=== PATIENT | male | born 1970 | race Caucasian/White ===

== ENCOUNTER 2018-08-24 17:53 | Inpatient (IN) | END 2018-08-28 18:00 | disposition home health service (06) | DRG 854 ==

== ENCOUNTER 2018-12-12 14:10 | Inpatient (IN) | payer OTHER ==
[~2018-12-12] VITALS: Ht 180.3 cm; Wt 85.1 kg
[~2018-12-12 14:10] MED LIST: Insulin Glargine SC; LEVO500T48 PO; NOVO3I SC
[2018-12-12] MEDS ORDERED: VANCOMYCIN 1 GM (PMX) 250 ML IVPB STA (16:55)
[2018-12-12] MEDS ORDERED: PIPER-TAZO 3.375 GM IV (PMX) 100 ML IVPB STA (16:55)
[2018-12-12] MEDS ORDERED: SODIUM CHLORIDE 0.9% 1L BAG IV* STA (16:55)
--- NOTE | 2018-12-12 17:13 | ERD ---
ER Documentation Chief Complaint Chief Complaint L foot toes possible infection/osteomyelitis; sent by PMD HPI 48-year-old male sent in by his scorer single Dr. Van Galicia, for possible osteomyelitis seen on MRI done recently on the left foot. Patient was admitted here in August 2018 for osteomyelitis of the left foot pinky toe. He had an amputation at that time and was put on 6 weeks of IV antibiotics. He has been following up with his scorer single and his symptoms have been improving. He has not noticed any pain or redness in his toes. However recent MRI did show possible osteomyelitis of the tips of the third and fourth toe. Patient does not have the report with him. He is denying any fevers or chills. No new wounds. ROS All systems reviewed and are negative except as per history of present illness. Medications Home Meds Reported Medications Hydralazine Hcl* (Hydralazine Hcl*) 10 Mg Tablet, 10 MG PO TID PRN for NEEDED, #60 TAB 12/12/18 Insulin Glargine,Hum.rec.anlog (Basaglar Kwikpen U-100) 100 Unit/1 Ml Insuln.pen, 16 UNIT SC DAILY, EA 12/12/18 Insulin Lispro (Humalog) 100 Unit/1 Ml Cartridge, 0 SQ SLIDING SCALE, EA INJECT NEEDED (AVERAGE BTWN 3-5 UNIUTS) 12/12/18 Discontinued Scripts [Insulin Glargine] 100 UNITS/ML SOLN No Conflict Check, 16 UNITS SC DAILY@1999, #30 ML Prov:ELPIDIO FISCHER MD 08/28/18 Insulin Aspart* (Novolog Insulin Pen*) 100 Unit/Ml Soln, 2 UNIT SC WITH MEALS BEDTIME, #30 ML Prov:ELPIDIO FISCHER MD 08/28/18 Levofloxacin* (Levaquin*) 500 Mg Tablet, 500 MG PO DAILY@06, #42 TAB Prov:ELPIDIO FISCHER MD 08/28/18 Allergies Allergies: Coded Allergies: No Known Allergy (Unverified , 12/12/18) PMhx/Soc History of Surgery: Yes (left pinky toe amputation) Anesthesia Reaction: No Hx Neurological Disorder: No Hx Respiratory Disorders: No Hx Cardiac Disorders: Yes (HTN) Hx Psychiatric Problems: No Hx Miscellaneous Medical Probl: Yes (DM) Hx Alcohol Use: No Hx Substance Use: Yes (marijuana, hx of stimulant use) Hx Tobacco Use: Yes Smoking Status: Current every day smoker FmHx Family History: diabetes Physical Exam Vitals Vital Signs Date Temp Pulse Resp B/P (MAP) Pulse Ox O2 O2 Flow FiO2 Time Delivery Rate 12/12/18 97.4 85 20 125/74 96 Room Air 16:58 (91) 12/12/18 97.4 111 20 125/74 96 14:20 (91) Physical Exam Const: No acute distress Head: Atraumatic Eyes: Normal Conjunctiva ENT: Normal External Ears, Nose and Mouth. Neck: Full range of motion. No meningismus. Resp: Clear to auscultation bilaterally Cardio: Regular rate and rhythm, no murmurs Abd: Soft, non tender, non distended. Normal bowel sounds Skin: No petechiae or rashes Back: No midline or flank tenderness Ext: No cyanosis, or edema. Left foot exam: Healing surgical wound of the lateral foot at site of toe amputation. No erythema, tenderness or swelling of the other toes. No additional wounds seen. 2+ DP and PT pulses. Right foot appears normal without wounds, erythema, tenderness. 2+ DP and PT pulses. Neur: Awake and alert Psych: Normal Mood and Affect Results 24 hrs Laboratory Tests Test 12/12/18 17:17 12/12/18 17:21 White Blood Count Pending Red Blood Count Pending Hemoglobin Pending Hematocrit Pending Mean Corpuscular Volume Pending Mean Corpuscular Hemoglobin Pending Mean Corpuscular Hemoglobin Concent Pending Red Cell Distribution Width Pending Platelet Count Pending Mean Platelet Volume Pending Prothrombin Time 11.4 Sec Prothrombin Time Ratio 0.9 INR International Normalized Ratio 0.82 Activated Partial Thromboplast Time 32.6 Sec POC Venous Lactate 1.1 mmol/L Current Medications Medications Dose Sig/Siddhartha Start Time Status Last (Trade) Ordered Route PRN Stop Time Admin Dose Reason Admin Sodium 2,550 ml BOLUS OVER 2 12/12/18 DC 12/12/18 Chloride HOURS STAT 16:55 17:29 (NS) IV* 12/12/18 16:57 Vancomycin 250 ml @ ONCE STAT 12/12/18 HCl 125 mls/hr IVPB 16:55 12/12/18 18:54 Piperacillin 100 ml @ ONCE STAT 12/12/18 DC 3/13/19 Sod/ 200 mls/hr IVPB 16:55 17:29 Tazobactam 12/12/18 17:24 Sod Procedures/MDM EMERGENT LABS AND DIAGNOSTIC STUDIES: Lab Results above were reviewed and interpreted by me. CBC: no anemia or evidence of infection CMP: No evidence of electrolyte abnormality, renal failure, hypoglycemia, liver failure, or biliary obstruction Lactate within normal limits without evidence of sepsis or tissue hypoperfusion CRP: Radiology Results as interpreted by Radiology below were reviewed by Glory Terrazas MD: X-ray left foot: Initial Nursing notes reviewed. Previous Medical Records requested via the Electronic Health Record. EMERGENCY DEPARTMENT COURSE / MEDICAL DECISION MAKING: Patient presents with possible osteomyelitis of the left third and fourth toe seen on recent MRI. He is afebrile with only tachycardia on arrival which has improved. There is no evidence of severe sepsis or septic shock. On exam there is no evidence of cellulitis or any infected wounds. However given the MRI results, I feel the patient will need admission for ID consult and likely prolonged IV antibiotics. Broad-spectrum IV antibiotics were started in the ER. Spoke with Dr. Hutton, who has accepted the patient for admission to [facility]. Departure Diagnosis: Primary Impression: Foot osteomyelitis, left Osteomyelitis type: unspecified type Qualified Codes: M86.9 - Osteomyelitis, unspecified Condition: WILEY Solis MD Dec 12, 2018 17:13
[2018-12-12] MEDS ORDERED: INSU100C SQ (17:50)
[2018-12-12] MEDS ORDERED: INSU100I33 SC (17:51)
[2018-12-12] MEDS ORDERED: HYDR-3670 PO (17:52)
[2018-12-12] MEDS ORDERED: LISI-471 PO (17:52)
[2018-12-12] MEDS ORDERED: CHOL500010 PO (17:54)
[2018-12-12] MEDS ORDERED: LIRA0.6P SQ (17:55)
[2018-12-12] MEDS ORDERED: ACETAMINOPHEN 325 MG TAB PO PRN ×2 (18:00→19:30)
[2018-12-12] MEDS ORDERED: ONDANSETRON 4 MG INJ IV PRN ×2 (18:00→19:30)
[2018-12-12] MEDS ORDERED: NACL 0.9% 3 ML SYG IV SCH (19:30)
[2018-12-12] MEDS ORDERED: morphine 2 MG INJ IV PRN (19:30)
[2018-12-12] MEDS ORDERED: HYDROCODONE/APAP (5/325) TAB PO PRN (19:30)
[2018-12-12] MEDS ORDERED: ZOLPIDEM 5 MG TAB PO PRN (19:30)
[2018-12-12] MEDS ORDERED: DOCUSATE SODIUM 100 MG CAP PO PRN (19:30)
--- NOTE | 2018-12-12 19:36 | HP ---
Date/Time of Note Date/Time of Note DATE: 12/12/18 TIME: 19:34 Assessment/Plan VTE Prophylaxis SCD applied (from Nsg): Yes Pharmacological prophylaxis: NA/contraindicated Pharm contraindication: surgical contra Lines/Catheters IV Catheter Type (from Nrsg): Saline Lock Assessment/Plan Hospital Course 1. Reported osteomyelitis of the left foot in the third and fourth digits Patient had a recent MRI 2 days ago with reported OM, patient was sent by [facility] Patient is currently asymptomatic Start IV antibiotics Podiatry and ID consultations 2. Diabetes-type I Scheduled insulin and sliding scale 3. History of meth use 4. CKD Monitor Prophylaxis: SCDs Result Diagram: 12/12/18 1717 12/12/18 1717 Results 24hrs Laboratory Tests Test 12/12/18 17:17 12/12/18 17:21 White Blood Count 8.6 # Red Blood Count 4.47 #L Hemoglobin 13.8 #L Hematocrit 40.4 #L Mean Corpuscular Volume 90.4 Mean Corpuscular Hemoglobin 30.9 Mean Corpuscular Hemoglobin Concent 34.2 Red Cell Distribution Width 13.3 Platelet Count 340 Mean Platelet Volume 9.0 Immature Granulocytes % 0.400 Neutrophils % 54.6 Lymphocytes % 29.3 Monocytes % 5.0 Eosinophils % 10.2 H Basophils % 0.5 Nucleated Red Blood Cells % 0.0 Immature Granulocytes # 0.030 Neutrophils # 4.7 Lymphocytes # 2.5 Monocytes # 0.4 Eosinophils # 0.9 H Basophils # 0.0 Nucleated Red Blood Cells # 0.0 Prothrombin Time 11.4 L Prothrombin Time Ratio 0.9 INR International Normalized Ratio 0.82 Activated Partial Thromboplast Time 32.6 Sodium Level 142 Potassium Level 4.3 Chloride Level 101 Carbon Dioxide Level 31 Anion Gap 10 Blood Urea Nitrogen 15 Creatinine 1.50 H Est Glomerular Filtrat Rate mL/min 50 L Glucose Level 111 Calcium Level 10.3 H Total Bilirubin 0.6 Direct Bilirubin 0.00 Indirect Bilirubin 0.6 Aspartate Amino Transf (AST/SGOT) 25 Alanine Aminotransferase (ALT/SGPT) 30 Alkaline Phosphatase 90 C-Reactive Protein < 0.5 Total Protein 7.3 Albumin 4.3 Globulin 3.00 Albumin/Globulin Ratio 1.43 POC Venous Lactate 1.1 HPI/ROS Admit Date/Time Admit Date/Time December 12, 2018 Hx of Present Illness Patient is a 48-year-old male with a history of amphetamine use, type 1 diabetes as well as prior osteomyelitis of the right foot who was recently hospitalized in August 2018 for left foot gangrene status post left fifth digit amputation and excisional debridement. At that time wound culture grew enterococcus, PICC line was placed and patient was discharged with 6 weeks of p.o. Levaquin and IV ampicillin. Patient was sent from [facility] after recent outside MRI of the left foot showed osteomyelitis in the third and fourth digits. Podiatry sent patient to the ER for admission for antibiotics and ID consultation. Patient has no acute complaints this time and no ulcer or pain is reported on the feet. ROS Constitutional: no complaints, improved Eyes: no complaints ENT: no complaints Respiratory: no complaints Cardiovascular: no complaints Gastrointestinal: no complaints Genitourinary: no complaints Musculoskeletal: no complaints Skin: no complaints Neurologic: no complaints Endocrine: no complaints Lymphatic: no complaints Psychological: no complaints, nl mood/affect Immunologic: no complaints PMH/Family/Social Past Medical History As per HPI Medications Current Medications Ondansetron HCl (Zofran Inj) 4 mg BRIDGE ORDER PRN IV NAUSEA/VOMITING; Start 12/12/18 at 18:00; Stop 12/13/18 at 17:59 Acetaminophen (Tylenol Tab) 650 mg ER BRIDGE PRN PO .MILD PAIN 1-3 OR TEMP; Start 12/12/18 at 18:00; Stop 12/13/18 at 17:59 IV Flush (NS 3 ml) 3 ml PER PROTOCOL IV ; Start 12/12/18 at 19:30; Status UNV Ondansetron HCl (Zofran Inj) 4 mg Q6H PRN IV NAUSEA/VOMITING; Start 12/12/18 at 19:30; Status UNV Acetaminophen (Tylenol Tab) 650 mg Q6H PRN PO .PAIN 1-3 OR TEMP; Start 12/12/18 at 19:30; Status UNV Acetaminophen/ Hydrocodone Bitart ([place] (5/325)) 1 tab Q6H PRN PO .MOD PAIN 4- 6; Start 12/12/18 at 19:30; Status UNV Morphine Sulfate (morphine) 2 mg Q4H PRN IV .SEVERE PAIN 7-10; Start 12/12/18 at 19:30; Status UNV Docusate Sodium (Colace) 100 mg Q12H PRN PO .CONSTIPATION; Start 12/12/18 at 19:30; Status UNV Zolpidem Tartrate (Ambien) 5 mg QHS PRN PO .INSOMNIA; Start 12/12/18 at 19:30; Status UNV Ceftriaxone Sodium 50 ml @ 100 mls/hr Q24H IVPB ; Start 12/12/18 at 19:30; Status UNV Cholecalciferol (Vitamin D) 5,000 unit DAILY PO ; Start 12/13/18 at 09:00; Status UNV Lisinopril (Zestril) 20 mg DAILY PO ; Start 12/13/18 at 09:00; Status UNV Miscellaneous Information (* Miscellaneous Pharmacy Order) Discontinue current oral sulfonylur... ONCE ONCE XX ; Start 12/12/18 at 19:30; Stop 12/12/18 at 19:31; Status UNV Diagnostic Test (Pha) (Accu-Chek) 1 ea 02 XX ; Start 12/13/18 at 02:00; Status UNV Insulin Glargine (Lantus) 17 units DAILY@2000 SC ; Start 12/12/18 at 20:00; Status UNV Insulin Aspart (Novolog Insulin Pen) 6 unit WITH MEALS SC ; Start 12/13/18 at 08:00; Status UNV Miscellaneous Information (* Miscellaneous Pharmacy Order) HYPOGLYCEMIA PROTOCOL w... ONCE ONCE XX ; Start 12/12/18 at 19:30; Stop 12/12/18 at 19:31; Status UNV Insulin Aspart (Novolog Insulin Pen) NOVOLOG *MILD* ALGORITHM WITH MEALS BEDTIME SC ; Start 12/12/18 at 21:00; Status UNV Miscellaneous Information (* Miscellaneous Pharmacy Order) Discontinue all previ... ONCE ONCE XX ; Start 12/12/18 at 19:30; Stop 12/12/18 at 19:31; Status UNV Coded Allergies: No Known Allergy (Unverified , 12/12/18) Family History Significant Family History: no pertinent family hx Social History Alcohol Use: occasionally Smoking Status: Current every day smoker Drug Use: other (History of meth use) Exam/Review of Systems Vital Signs Vitals Vital Signs Date Temp Pulse Resp B/P (MAP) Pulse Ox O2 O2 Flow FiO2 Time Delivery Rate 12/12/18 90 16 144/94 97 Room Air 18:57 (111) 12/12/18 97.4 16:58 Exam Constitutional: alert, oriented Respiratory: clear to auscultation Cardiovascular: regular rate and rhythm Gastrointestinal: soft; No distended Musculoskeletal: nl extremities to inspection DUY WILLIS Dec 12, 2018 19:35
[2018-12-12] MEDS: INSULIN GLARGINE [LANTus] (100 UNITS/ML) SYG SC SCH (20:00)
[2018-12-12] MEDS ORDERED: GLUCAGON 1 MG INJ IM PRN (21:00)
[2018-12-12] MEDS ORDERED: GLUCOSE GEL 15 GRAM TUBE BUCCAL PRN (21:00)
[2018-12-12] MEDS: INSULIN ASPART [NOVOLOG] 3 ML PEN SC SCH (21:00)
[2018-12-12] MEDS ORDERED: GLUCOSE GEL 15 GRAM TUBE PO PRN ×2 (21:00)
[2018-12-12] MEDS ORDERED: DEXTROSE 50% 50 ML SYRINGE IV PRN ×2 (21:00)
[2018-12-12] MEDS: CEFTRIAXONE 1 GM/50 ML (PMX) 50 ML IVPB SCH (22:01)
[2018-12-12 23:16] VITALS: BP 160/99; PULSE 93; RESP 18
[2018-12-12 23:29] VITALS: Ht 180.3 cm; Wt 85.1 kg
[2018-12-13] MEDS: ACCU-CHEK XX SCH (01:05)
[2018-12-13 01:17] VITALS: BP 143/79; PULSE 91; RESP 18
[2018-12-13 07:45] VITALS: BP 141/76; PULSE 86; RESP 18
[2018-12-13] MEDS: INSULIN ASPART [NOVOLOG] 3 ML PEN SC SCH ×7 (08:00→21:00)
[2018-12-13] MEDS: LISINOPRIL 20 MG TAB PO SCH (08:52)
--- NOTE | 2018-12-13 12:53 | PN ---
Date/Time of Note Date/Time of Note DATE: 12/13/18 TIME: 12:51 Assessment/Plan VTE Prophylaxis Risk score (from Nsg)>0 risk: 1 SCD applied (from Nsg): Yes Pharmacological prophylaxis: heparin Lines/Catheters IV Catheter Type (from Nrsg): Saline Lock Assessment/Plan Hospital Course 48 yo male with DMII, PAD, diabetic foot wound with osteomyelitis - continue abx per Dr Larson - MEHREEN is pending to assess vasculature - DMII controlled with basal/bolus insulin Result Diagram: 12/13/18 0500 12/13/18 0500 Results 24hrs Laboratory Tests Test 12/12/18 17:17 12/12/18 17:21 12/12/18 20:02 12/12/18 21:23 White Blood Count 8.6 # Red Blood Count 4.47 #L Hemoglobin 13.8 #L Hematocrit 40.4 #L Mean Corpuscular 90.4 Volume Mean Corpuscular 30.9 Hemoglobin Mean Corpuscular 34.2 Hemoglobin Concent Red Cell 13.3 Distribution Width Platelet Count 340 Mean Platelet Volume 9.0 Immature 0.400 Granulocytes % Neutrophils % 54.6 Lymphocytes % 29.3 Monocytes % 5.0 Eosinophils % 10.2 H Basophils % 0.5 Nucleated Red Blood 0.0 Cells % Immature 0.030 Granulocytes # Neutrophils # 4.7 Lymphocytes # 2.5 Monocytes # 0.4 Eosinophils # 0.9 H Basophils # 0.0 Nucleated Red Blood 0.0 Cells # Prothrombin Time 11.4 L Prothrombin Time 0.9 Ratio INR International 0.82 Normalized Ratio Activated 32.6 Partial Thromboplast Time Sodium Level 142 Potassium Level 4.3 Chloride Level 101 Carbon Dioxide Level 31 Anion Gap 10 Blood Urea Nitrogen 15 Creatinine 1.50 H Est Glomerular 50 L Filtrat Rate mL/min Glucose Level 111 Calcium Level 10.3 H Total Bilirubin 0.6 Direct Bilirubin 0.00 Indirect Bilirubin 0.6 Aspartate Amino 25 Transf (AST/SGOT) Alanine 30 Aminotransferase (AL T/SGPT) Alkaline Phosphatase 90 C-Reactive Protein < 0.5 Total Protein 7.3 Albumin 4.3 Globulin 3.00 Albumin/Globulin 1.43 Ratio POC Venous Lactate 1.1 1.0 Bedside Glucose 155 Test 12/13/18 05:00 12/13/18 08:29 White Blood Count 7.8 Red Blood Count 4.12 L Hemoglobin 12.5 L Hematocrit 36.9 L Mean Corpuscular 89.6 Volume Mean Corpuscular 30.3 Hemoglobin Mean Corpuscular 33.9 Hemoglobin Concent Red Cell 13.2 Distribution Width Platelet Count 284 Mean Platelet Volume 9.1 Immature 0.300 Granulocytes % Neutrophils % 60.1 Lymphocytes % 23.4 Monocytes % 5.9 Eosinophils % 9.7 H Basophils % 0.6 Nucleated Red Blood 0.0 Cells % Immature 0.020 Granulocytes # Neutrophils # 4.7 Lymphocytes # 1.8 Monocytes # 0.5 Eosinophils # 0.8 H Basophils # 0.1 Nucleated Red Blood 0.0 Cells # Sodium Level 139 Potassium Level 3.6 Chloride Level 105 Carbon Dioxide Level 28 Anion Gap 6 Blood Urea Nitrogen 12 Creatinine 1.17 Est Glomerular > 60 Filtrat Rate mL/min Glucose Level 100 Hemoglobin A1c 6.0 H Calcium Level 9.1 Phosphorus Level 3.7 Magnesium Level 1.9 Bedside Glucose 86 Subjective 24 Hr Interval Summary Free Text/Dictation Declines surgical intervention at this time Awaiting PICC and intitiation of home IV abx Exam/Review of Systems Exam Vitals Vital Signs Date Temp Pulse Resp B/P (MAP) Pulse Ox O2 O2 Flow FiO2 Time Delivery Rate 12/13/18 97.7 86 18 141/76 96 07:45 (97) 12/12/18 Room Air 22:19 Constitutional: alert, oriented, well developed Psych: no complaints, nl mood/affect Head: normocephalic, atraumatic Eyes: nl conjunctiva, EOMI, nl lids, nl sclera, PERRL ENMT: nl external ears & nose, nl lips & teeth, nl nasal mucosa & septum Neck: supple, non-tender Respiratory: clear to auscultation, normal air movement Cardiovascular: regular rate and rhythm, nl pulses Gastrointestinal: soft, nl liver, spleen, non-tender Musculoskeletal: nl extremities to inspection, nl gait and stance Extremities: normal pulses Neurological: HOSPICE LIAISON II-XII intact, nl mental status, nl speech, nl strength Skin: nl turgor; No rash or lesions Lymph: nl lymph nodes Results Results 24hrs Laboratory Tests Test 12/12/18 17:17 12/12/18 17:21 12/12/18 20:02 12/12/18 21:23 White Blood Count 8.6 # Red Blood Count 4.47 #L Hemoglobin 13.8 #L Hematocrit 40.4 #L Mean Corpuscular 90.4 Volume Mean Corpuscular 30.9 Hemoglobin Mean Corpuscular 34.2 Hemoglobin Concent Red Cell 13.3 Distribution Width Platelet Count 340 Mean Platelet Volume 9.0 Immature 0.400 Granulocytes % Neutrophils % 54.6 Lymphocytes % 29.3 Monocytes % 5.0 Eosinophils % 10.2 H Basophils % 0.5 Nucleated Red Blood 0.0 Cells % Immature 0.030 Granulocytes # Neutrophils # 4.7 Lymphocytes # 2.5 Monocytes # 0.4 Eosinophils # 0.9 H Basophils # 0.0 Nucleated Red Blood 0.0 Cells # Prothrombin Time 11.4 L Prothrombin Time 0.9 Ratio INR International 0.82 Normalized Ratio Activated 32.6 Partial Thromboplast Time Sodium Level 142 Potassium Level 4.3 Chloride Level 101 Carbon Dioxide Level 31 Anion Gap 10 Blood Urea Nitrogen 15 Creatinine 1.50 H Est Glomerular 50 L Filtrat Rate mL/min Glucose Level 111 Calcium Level 10.3 H Total Bilirubin 0.6 Direct Bilirubin 0.00 Indirect Bilirubin 0.6 Aspartate Amino 25 Transf (AST/SGOT) Alanine 30 Aminotransferase (AL T/SGPT) Alkaline Phosphatase 90 C-Reactive Protein < 0.5 Total Protein 7.3 Albumin 4.3 Globulin 3.00 Albumin/Globulin 1.43 Ratio POC Venous Lactate 1.1 1.0 Bedside Glucose 155 Test 12/13/18 05:00 12/13/18 08:29 White Blood Count 7.8 Red Blood Count 4.12 L Hemoglobin 12.5 L Hematocrit 36.9 L Mean Corpuscular 89.6 Volume Mean Corpuscular 30.3 Hemoglobin Mean Corpuscular 33.9 Hemoglobin Concent Red Cell 13.2 Distribution Width Platelet Count 284 Mean Platelet Volume 9.1 Immature 0.300 Granulocytes % Neutrophils % 60.1 Lymphocytes % 23.4 Monocytes % 5.9 Eosinophils % 9.7 H Basophils % 0.6 Nucleated Red Blood 0.0 Cells % Immature 0.020 Granulocytes # Neutrophils # 4.7 Lymphocytes # 1.8 Monocytes # 0.5 Eosinophils # 0.8 H Basophils # 0.1 Nucleated Red Blood 0.0 Cells # Sodium Level 139 Potassium Level 3.6 Chloride Level 105 Carbon Dioxide Level 28 Anion Gap 6 Blood Urea Nitrogen 12 Creatinine 1.17 Est Glomerular > 60 Filtrat Rate mL/min Glucose Level 100 Hemoglobin A1c 6.0 H Calcium Level 9.1 Phosphorus Level 3.7 Magnesium Level 1.9 Bedside Glucose 86 Medications Medication Current Medications IV Flush (NS 3 ml) 3 ml PER PROTOCOL IV ; Start 12/12/18 at 19:30 Ondansetron HCl (Zofran Inj) 4 mg Q6H PRN IV NAUSEA/VOMITING; Start 12/12/18 at 19:30 Acetaminophen (Tylenol Tab) 650 mg Q6H PRN PO .PAIN 1-3 OR TEMP Last administered on 12/12/18at 23:15; Admin Dose 650 MG; Start 12/12/18 at 19:30 Acetaminophen/ Hydrocodone Bitart ([place] (5/325)) 1 tab Q6H PRN PO .MOD PAIN 4- 6; Start 12/12/18 at 19:30 Morphine Sulfate (morphine) 2 mg Q4H PRN IV .SEVERE PAIN 7-10; Start 12/12/18 at 19:30 Docusate Sodium (Colace) 100 mg Q12H PRN PO .CONSTIPATION; Start 12/12/18 at 1 9:30 Zolpidem Tartrate (Ambien) 5 mg QHS PRN PO .INSOMNIA; Start 12/12/18 at 19:30 Ceftriaxone Sodium 50 ml @ 100 mls/hr Q24H IVPB Last administered on 12/12/18at 22:01; Admin Dose 100 MLS/HR; Start 12/12/18 at 19:30 Cholecalciferol (Vitamin D) 5,000 unit DAILY PO ; Start 12/13/18 at 09:00 Lisinopril (Zestril) 20 mg DAILY PO Last administered on 12/13/18at 08:52; Admin Dose 20 MG; Start 12/13/18 at 09:00 Diagnostic Test (Pha) (Accu-Chek) 1 ea 02 XX ; Start 12/13/18 at 02:00 Insulin Glargine (Lantus) 17 units DAILY@2000 SC ; Start 12/12/18 at 20:00 Insulin Aspart (Novolog Insulin Pen) 6 unit WITH MEALS SC Last administered on 12/13/18at 09:02; Admin Dose 6 UNIT; Start 12/13/18 at 08:00 Insulin Aspart (Novolog Insulin Pen) NOVOLOG *MILD* ALGORITHM WITH MEALS BEDTIME SC ; Start 12/12/18 at 21:00 Miscellaneous Information 1 ea NOTE XX ; Start 12/12/18 at 21:00 Glucose (Glutose) 15 gm Q15M PRN PO DECREASED GLUCOSE; Start 12/12/18 at 21:00 Glucose (Glutose) 22.5 gm Q15M PRN PO DECREASED GLUCOSE; Start 12/12/18 at 21:00 Dextrose (D50w Syringe) 25 ml Q15M PRN IV DECREASED GLUCOSE; Start 12/12/18 at 21:00 Dextrose (D50w Syringe) 50 ml Q15M PRN IV DECREASED GLUCOSE; Start 12/12/18 at 21:00 Glucagon (Glucagen) 1 mg Q15M PRN IM DECREASED GLUCOSE; Start 12/12/18 at 21:00 Glucose (Glutose) 15 gm Q15M PRN BUCCAL DECREASED GLUCOSE; Start 12/12/18 at 21:00 Hydralazine HCl (Apresoline) 10 mg TID PO Last administered on 12/13/18at 08:52; Admin Dose 10 MG; Start 12/13/18 at 00:00 Influenza Virus Vaccine Quadrival (Fluzone) 0.5 ml ONCE ONCE IM* ; Start 12/14/18 at 10:00; Stop 12/14/18 at 10:01 REYNOLD VERONICA MD Dec 13, 2018 12:53
[2018-12-13] MEDS: CHOLECALCIFEROL 1,000 UNIT TAB PO SCH (13:03)
[2018-12-13 13:34] VITALS: BP 130/84; PULSE 86; RESP 18
--- NOTE | 2018-12-13 13:52 | CONS ---
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 Hyperkeratotic tissue, biofilm, and non-viable tissue was removed from the wound bed. Less than 20cm2 of area was debrided. Wound cultures obtained. Non invasive arterial studies ordered. Patient brought MRI results on a CD from outside facility and reviewed imaging. There are areas where signs of osteomyelitis can be appreciated. Recommend ID consult and will need PICC line abx for 4-6 weeks. Patient refusing OR procedures at this time. Amenable to bedside debridements and IV abx. Recommend social worker health services/case management to verify insurance can cover visits for the [facility]. Daily dressing changes and orders placed. Consultation Date/Type/Reason Admit Date/Time December 12, 2018 Date/Time of Note DATE: 12/13/18 TIME: 13:50 Hx of Present Illness 48 y/o diabetic male with hx of amphetamine use presents to the floor with left diabetic ulcer. Patient in the past had infected 5th digit of the left foot and had undergone amputation. He was being seen by an outside straddle bug operator and had a recent MRI which had shown signs of osteomyelitis. He was on PICC line abx previously but was interrupted when the PICC line was accidently removed. Patient notes the wound has progressed well. Patient denies f/c/n/v no chest pain or shortness of breath. Patient denies pain to the foot. ROS Constitutional: no complaints, improved Eyes: no complaints ENT: no complaints Respiratory: no complaints Cardiovascular: no complaints Gastrointestinal: no complaints Genitourinary: no complaints Musculoskeletal: no complaints Skin: no complaints Neurologic: no complaints Endocrine: no complaints Lymphatic: no complaints Psychological: no complaints, nl mood/affect Immunologic: no complaints Past Medical History amphetamine use, type 1 diabetes, osteomyelitis Home Meds Reported Medications Liraglutide (Victoza 2-Jose) 0.6 Mg/0.1 Ml Pen.injctr, 0.6 MG SQ DAILY, SYR 12/12/18 Cholecalciferol (Vitamin D3) 5,000 Unit Tablet, 5000 UNIT PO DAILY, TAB 12/12/18 Lisinopril* (Lisinopril*) 20 Mg Tablet, 20 MG PO DAILY, #30 TAB 12/12/18 Hydralazine Hcl* (Hydralazine Hcl*) 10 Mg Tablet, 10 MG PO TID PRN for NEEDED, #60 TAB 12/12/18 Insulin Glargine,Hum.rec.anlog (Basaglar Kwikpen U-100) 100 Unit/1 Ml Insuln.pen, 16 UNIT SC DAILY, EA 12/12/18 Insulin Lispro (Humalog) 100 Unit/1 Ml Cartridge, 0 SQ SLIDING SCALE, EA INJECT NEEDED (AVERAGE BTWN 3-5 UNIUTS) 12/12/18 Discontinued Scripts [Insulin Glargine] 100 UNITS/ML SOLN No Conflict Check, 16 UNITS SC DAILY@1999, #30 ML Prov:ELPIDIO FISCHER MD 08/28/18 Insulin Aspart* (Novolog Insulin Pen*) 100 Unit/Ml Soln, 2 UNIT SC WITH MEALS BEDTIME, #30 ML Prov:ELPIDIO FISCHER MD 08/28/18 Levofloxacin* (Levaquin*) 500 Mg Tablet, 500 MG PO DAILY@, #42 TAB Prov:ELPIDIO FISCEHR MD 08/28/18 Medications Current Medications IV Flush (NS 3 ml) 3 ml PER PROTOCOL IV ; Start 12/12/18 at 19:30 Ondansetron HCl (Zofran Inj) 4 mg Q6H PRN IV NAUSEA/VOMITING; Start 12/12/18 at 19:30 Acetaminophen (Tylenol Tab) 650 mg Q6H PRN PO .PAIN 1-3 OR TEMP Last administered on 12/12/18at 23:15; Admin Dose 650 MG; Start 12/12/18 at 19:30 Acetaminophen/ Hydrocodone Bitart ([place] (5/325)) 1 tab Q6H PRN PO .MOD PAIN 4- 6; Start 12/12/18 at 19:30 Morphine Sulfate (morphine) 2 mg Q4H PRN IV .SEVERE PAIN 7-10 Last administered on 12/13/18at 13:26; Admin Dose 2 MG; Start 12/12/18 at 19:30 Docusate Sodium (Colace) 100 mg Q12H PRN PO .CONSTIPATION; Start 12/12/18 at 19:30 Zolpidem Tartrate (Ambien) 5 mg QHS PRN PO .INSOMNIA; Start 12/12/18 at 19:30 Ceftriaxone Sodium 50 ml @ 100 mls/hr Q24H IVPB Last administered on 12/12/18at 22:01; Admin Dose 100 MLS/HR; Start 12/12/18 at 19:30 Cholecalciferol (Vitamin D) 5,000 unit DAILY PO Last administered on 12/13/18at 13:03; Admin Dose 5,000 UNIT; Start 12/13/18 at 09:00 Lisinopril (Zestril) 20 mg DAILY PO Last administered on 12/13/18at 08:52; Admin Dose 20 MG; Start 12/13/18 at 09:00 Diagnostic Test (Pha) (Accu-Chek) 1 ea 02 XX ; Start 12/13/18 at 02:00 Insulin Glargine (Lantus) 17 units DAILY@2000 SC ; Start 12/12/18 at 20:00 Insulin Aspart (Novolog Insulin Pen) 6 unit WITH MEALS SC Last administered on 12/13/18at 09:02; Admin Dose 6 UNIT; Start 12/13/18 at 08:00 Insulin Aspart (Novolog Insulin Pen) NOVOLOG *MILD* ALGORITHM WITH MEALS BEDTIME SC ; Start 12/12/18 at 21:00 Miscellaneous Information 1 ea NOTE XX ; Start 12/12/18 at 21:00 Glucose (Glutose) 15 gm Q15M PRN PO DECREASED GLUCOSE; Start 12/12/18 at 21:00 Glucose (Glutose) 22.5 gm Q15M PRN PO DECREASED GLUCOSE; Start 12/12/18 at 21:00 Dextrose (D50w Syringe) 25 ml Q15M PRN IV DECREASED GLUCOSE; Start 12/12/18 at 21:00 Dextrose (D50w Syringe) 50 ml Q15M PRN IV DECREASED GLUCOSE; Start 12/12/18 at 21:00 Glucagon (Glucagen) 1 mg Q15M PRN IM DECREASED GLUCOSE; Start 12/12/18 at 21:00 Glucose (Glutose) 15 gm Q15M PRN BUCCAL DECREASED GLUCOSE; Start 12/12/18 at 21:00 Hydralazine HCl (Apresoline) 10 mg TID PO Last administered on 12/13/18at 13:34; Admin Dose 10 MG; Start 12/13/18 at 00:00 Influenza Virus Vaccine Quadrival (Fluzone) 0.5 ml ONCE ONCE IM* ; Start 12/14/18 at 10:00; Stop 12/14/18 at 10:01 Allergies: Coded Allergies: No Known Allergy (Unverified , 12/12/18) Past Surgical History left 5th digit amputation Family History Significant Family History: no pertinent family hx Social History Alcohol Use: occasionally Smoking Status: Current every day smoker Drug Use: other (History of meth use) Exam/Review of Systems Exam Vitals Vital Signs Date Temp Pulse Resp B/P (MAP) Pulse Ox O2 O2 Flow FiO2 Time Delivery Rate 12/13/18 98.1 86 18 130/84 96 Room Air 13:34 (99) Exam DP/PT pulses palpable pedal hairs present CFT less than 3 seconds to the digits Left 5th digit ulceration site 4 x 0.8 x 0.8cm granular ulcer with hyperkeratotic border. The wound probes to bone and no purulence is expressed, no proximal streaking, no surrounding erythema Left plantar foot ulcer 0.2 x 0.2 x 0.1cm granular ulcer with hyperkeratotic border. Does not probe to bone, no purulence is expressed, no proximal streaking, no surrounding erythema Dystrophic mycotic nails Absent protective sensations Muscle strength 5/5 in all compartments of the foot. Results Result Diagram: 12/13/18 0500 12/13/18 0500 Results 24hrs Laboratory Tests Test 12/12/18 17:17 12/12/18 17:21 12/12/18 20:02 12/12/18 21:23 White Blood Count 8.6 # Red Blood Count 4.47 #L Hemoglobin 13.8 #L Hematocrit 40.4 #L Mean Corpuscular 90.4 Volume Mean Corpuscular 30.9 Hemoglobin Mean Corpuscular 34.2 Hemoglobin Concent Red Cell 13.3 Distribution Width Platelet Count 340 Mean Platelet Volume 9.0 Immature 0.400 Granulocytes % Neutrophils % 54.6 Lymphocytes % 29.3 Monocytes % 5.0 Eosinophils % 10.2 H Basophils % 0.5 Nucleated Red Blood 0.0 Cells % Immature 0.030 Granulocytes # Neutrophils # 4.7 Lymphocytes # 2.5 Monocytes # 0.4 Eosinophils # 0.9 H Basophils # 0.0 Nucleated Red Blood 0.0 Cells # Prothrombin Time 11.4 L Prothrombin Time 0.9 Ratio INR International 0.82 Normalized Ratio Activated 32.6 Partial Thromboplast Time Sodium Level 142 Potassium Level 4.3 Chloride Level 101 Carbon Dioxide Level 31 Anion Gap 10 Blood Urea Nitrogen 15 Creatinine 1.50 H Est Glomerular 50 L Filtrat Rate mL/min Glucose Level 111 Calcium Level 10.3 H Total Bilirubin 0.6 Direct Bilirubin 0.00 Indirect Bilirubin 0.6 Aspartate Amino 25 Transf (AST/SGOT) Alanine 30 Aminotransferase (AL T/SGPT) Alkaline Phosphatase 90 C-Reactive Protein < 0.5 Total Protein 7.3 Albumin 4.3 Globulin 3.00 Albumin/Globulin 1.43 Ratio POC Venous Lactate 1.1 1.0 Bedside Glucose 155 Test 12/13/18 05:00 12/13/18 08:29 12/13/18 13:02 White Blood Count 7.8 Red Blood Count 4.12 L Hemoglobin 12.5 L Hematocrit 36.9 L Mean Corpuscular 89.6 Volume Mean Corpuscular 30.3 Hemoglobin Mean Corpuscular 33.9 Hemoglobin Concent Red Cell 13.2 Distribution Width Platelet Count 284 Mean Platelet Volume 9.1 Immature 0.300 Granulocytes % Neutrophils % 60.1 Lymphocytes % 23.4 Monocytes % 5.9 Eosinophils % 9.7 H Basophils % 0.6 Nucleated Red Blood 0.0 Cells % Immature 0.020 Granulocytes # Neutrophils # 4.7 Lymphocytes # 1.8 Monocytes # 0.5 Eosinophils # 0.8 H Basophils # 0.1 Nucleated Red Blood 0.0 Cells # Sodium Level 139 Potassium Level 3.6 Chloride Level 105 Carbon Dioxide Level 28 Anion Gap 6 Blood Urea Nitrogen 12 Creatinine 1.17 Est Glomerular > 60 Filtrat Rate mL/min Glucose Level 100 Hemoglobin A1c 6.0 H Calcium Level 9.1 Phosphorus Level 3.7 Magnesium Level 1.9 Bedside Glucose 86 88 Medications Medication Current Medications IV Flush (NS 3 ml) 3 ml PER PROTOCOL IV ; Start 12/12/18 at 19:30 Ondansetron HCl (Zofran Inj) 4 mg Q6H PRN IV NAUSEA/VOMITING; Start 12/12/18 at 19:30 Acetaminophen (Tylenol Tab) 650 mg Q6H PRN PO .PAIN 1-3 OR TEMP Last administered on 12/12/18at 23:15; Admin Dose 650 MG; Start 12/12/18 at 19:30 Acetaminophen/ Hydrocodone Bitart ([place] (5/325)) 1 tab Q6H PRN PO .MOD PAIN 4- 6; Start 12/12/18 at 19:30 Morphine Sulfate (morphine) 2 mg Q4H PRN IV .SEVERE PAIN 7-10 Last administered on 12/13/18at 13:26; Admin Dose 2 MG; Start 12/12/18 at 19:30 Docusate Sodium (Colace) 100 mg Q12H PRN PO .CONSTIPATION; Start 12/12/18 at 19:30 Zolpidem Tartrate (Ambien) 5 mg QHS PRN PO .INSOMNIA; Start 12/12/18 at 19:30 Ceftriaxone Sodium 50 ml @ 100 mls/hr Q24H IVPB Last administered on 12/12/18at 22:01; Admin Dose 100 MLS/HR; Start 12/12/18 at 19:30 Cholecalciferol (Vitamin D) 5,000 unit DAILY PO Last administered on 12/13/18at 13:03; Admin Dose 5,000 UNIT; Start 12/13/18 at 09:00 Lisinopril (Zestril) 20 mg DAILY PO Last administered on 12/13/18at 08:52; Admin Dose 20 MG; Start 12/13/18 at 09:00 Diagnostic Test (Pha) (Accu-Chek) 1 ea 02 XX ; Start 12/13/18 at 02:00 Insulin Glargine (Lantus) 17 units DAILY@2000 SC ; Start 12/12/18 at 20:00 Insulin Aspart (Novolog Insulin Pen) 6 unit WITH MEALS SC Last administered on 12/13/18at 09:02; Admin Dose 6 UNIT; Start 12/13/18 at 08:00 Insulin Aspart (Novolog Insulin Pen) NOVOLOG *MILD* ALGORITHM WITH MEALS BEDTIME SC ; Start 12/12/18 at 21:00 Miscellaneous Information 1 ea NOTE XX ; Start 12/12/18 at 21:00 Glucose (Glutose) 15 gm Q15M PRN PO DECREASED GLUCOSE; Start 12/12/18 at 21:00 Glucose (Glutose) 22.5 gm Q15M PRN PO DECREASED GLUCOSE; Start 12/12/18 at 21:00 Dextrose (D50w Syringe) 25 ml Q15M PRN IV DECREASED GLUCOSE; Start 12/12/18 at 21:00 Dextrose (D50w Syringe) 50 ml Q15M PRN IV DECREASED GLUCOSE; Start 12/12/18 at 21:00 Glucagon (Glucagen) 1 mg Q15M PRN IM DECREASED GLUCOSE; Start 12/12/18 at 21:00 Glucose (Glutose) 15 gm Q15M PRN BUCCAL DECREASED GLUCOSE; Start 12/12/18 at 21:00 Hydralazine HCl (Apresoline) 10 mg TID PO Last administered on 12/13/18at 13:34; Admin Dose 10 MG; Start 12/13/18 at 00:00 Influenza Virus Vaccine Quadrival (Fluzone) 0.5 ml ONCE ONCE IM* ; Start 12/14/18 at 10:00; Stop 12/14/18 at 10:01 EMILIE DING DPM Dec 13, 2018 13:52
--- NOTE | 2018-12-13 16:16 | CONS ---
Assessment/Plan Assessment/Plan Hospital Course (Demo Recall) Patient is alert looks comfortable denies pain no fevers overnight Antimicrobials Rocephin Physical examination well-developed well-nourished middle-aged man who is alert in no distress. Head atraumatic normocephalic. Neck is supple chest rise symmetrical. Breath sounds clear. Heart: S1-S2. Abdomen soft bowel sounds present. Extremities: Left lower extremity Juno wrapped Assessment: 1. Left diabetic foot ulceration with ongoing osteomyelitis 2. Diabetes with diabetic neuropathy 3. Peripheral arterial disease 4. Chronic tobacco use and a history of amphetamine use Plan: Patient remains stable, podiatry on case, will order wound culture continue vancomycin and Rocephin for now. Patient will require 6 weeks IV antibiotics Discussed with Dr. Miner Consultation Date/Type/Reason Admit Date/Time Dec 12, 2018 at 17:52 Initial Consult Date Type of Consult id Date/Time of Note DATE: 12/13/18 TIME: 16:16 Exam/Review of Systems Exam Vitals Vital Signs Date Temp Pulse Resp B/P (MAP) Pulse Ox O2 O2 Flow FiO2 Time Delivery Rate 12/13/18 98.1 86 18 130/84 96 Room Air 13:34 (99) Results Result Diagram: 12/13/18 0500 12/13/18 0500 Results 24hrs Laboratory Tests Test 12/12/18 17:17 12/12/18 17:21 12/12/18 20:02 12/12/18 21:23 White Blood Count 8.6 # Red Blood Count 4.47 #L Hemoglobin 13.8 #L Hematocrit 40.4 #L Mean Corpuscular 90.4 Volume Mean Corpuscular 30.9 Hemoglobin Mean Corpuscular 34.2 Hemoglobin Concent Red Cell 13.3 Distribution Width Platelet Count 340 Mean Platelet Volume 9.0 Immature 0.400 Granulocytes % Neutrophils % 54.6 Lymphocytes % 29.3 Monocytes % 5.0 Eosinophils % 10.2 H Basophils % 0.5 Nucleated Red Blood 0.0 Cells % Immature 0.030 Granulocytes # Neutrophils # 4.7 Lymphocytes # 2.5 Monocytes # 0.4 Eosinophils # 0.9 H Basophils # 0.0 Nucleated Red Blood 0.0 Cells # Prothrombin Time 11.4 L Prothrombin Time 0.9 Ratio INR International 0.82 Normalized Ratio Activated 32.6 Partial Thromboplast Time Sodium Level 142 Potassium Level 4.3 Chloride Level 101 Carbon Dioxide Level 31 Anion Gap 10 Blood Urea Nitrogen 15 Creatinine 1.50 H Est Glomerular 50 L Filtrat Rate mL/min Glucose Level 111 Calcium Level 10.3 H Total Bilirubin 0.6 Direct Bilirubin 0.00 Indirect Bilirubin 0.6 Aspartate Amino 25 Transf (AST/SGOT) Alanine 30 Aminotransferase (AL T/SGPT) Alkaline Phosphatase 90 C-Reactive Protein < 0.5 Total Protein 7.3 Albumin 4.3 Globulin 3.00 Albumin/Globulin 1.43 Ratio POC Venous Lactate 1.1 1.0 Bedside Glucose 155 Test 12/13/18 05:00 12/13/18 08:29 12/13/18 13:02 12/13/18 15:00 White Blood Count 7.8 Red Blood Count 4.12 L Hemoglobin 12.5 L Hematocrit 36.9 L Mean Corpuscular 89.6 Volume Mean Corpuscular 30.3 Hemoglobin Mean Corpuscular 33.9 Hemoglobin Concent Red Cell 13.2 Distribution Width Platelet Count 284 Mean Platelet Volume 9.1 Immature 0.300 Granulocytes % Neutrophils % 60.1 Lymphocytes % 23.4 Monocytes % 5.9 Eosinophils % 9.7 H Basophils % 0.6 Nucleated Red Blood 0.0 Cells % Immature 0.020 Granulocytes # Neutrophils # 4.7 Lymphocytes # 1.8 Monocytes # 0.5 Eosinophils # 0.8 H Basophils # 0.1 Nucleated Red Blood 0.0 Cells # Sodium Level 139 Potassium Level 3.6 Chloride Level 105 Carbon Dioxide Level 28 Anion Gap 6 Blood Urea Nitrogen 12 Creatinine 1.17 Est Glomerular > 60 Filtrat Rate mL/min Glucose Level 100 Hemoglobin A1c 6.0 H Calcium Level 9.1 Phosphorus Level 3.7 Magnesium Level 1.9 Bedside Glucose 86 88 C-Reactive Protein < 0.5 Medications Medication Current Medications IV Flush (NS 3 ml) 3 ml PER PROTOCOL IV ; Start 12/12/18 at 19:30 Ondansetron HCl (Zofran Inj) 4 mg Q6H PRN IV NAUSEA/VOMITING; Start 12/12/18 at 19:30 Acetaminophen (Tylenol Tab) 650 mg Q6H PRN PO .PAIN 1-3 OR TEMP Last administered on 12/12/18at 23:15; Admin Dose 650 MG; Start 12/12/18 at 19:30 Acetaminophen/ Hydrocodone Bitart ([place] (5/325)) 1 tab Q6H PRN PO .MOD PAIN 4- 6; Start 12/12/18 at 19:30 Morphine Sulfate (morphine) 2 mg Q4H PRN IV .SEVERE PAIN 7-10 Last administered on 12/13/18at 13:26; Admin Dose 2 MG; Start 12/12/18 at 19:30 Docusate Sodium (Colace) 100 mg Q12H PRN PO .CONSTIPATION; Start 12/12/18 at 19:30 Zolpidem Tartrate (Ambien) 5 mg QHS PRN PO .INSOMNIA; Start 12/12/18 at 19:30 Ceftriaxone Sodium 50 ml @ 100 mls/hr Q24H IVPB Last administered on 12/12/18at 22:01; Admin Dose 100 MLS/HR; Start 12/12/18 at 19:30 Cholecalciferol (Vitamin D) 5,000 unit DAILY PO Last administered on 12/13/18at 13:03; Admin Dose 5,000 UNIT; Start 12/13/18 at 09:00 Lisinopril (Zestril) 20 mg DAILY PO Last administered on 12/13/18at 08:52; Admin Dose 20 MG; Start 12/13/18 at 09:00 Diagnostic Test (Pha) (Accu-Chek) 1 ea 02 XX ; Start 12/13/18 at 02:00 Insulin Glargine (Lantus) 17 units DAILY@2000 SC ; Start 12/12/18 at 20:00 Insulin Aspart (Novolog Insulin Pen) 6 unit WITH MEALS SC Last administered on 12/13/18at 13:59; Admin Dose 6 UNIT; Start 12/13/18 at 08:00 Insulin Aspart (Novolog Insulin Pen) NOVOLOG *MILD* ALGORITHM WITH MEALS BEDTIME SC ; Start 12/12/18 at 21:00 Miscellaneous Information 1 ea NOTE XX ; Start 12/12/18 at 21:00 Glucose (Glutose) 15 gm Q15M PRN PO DECREASED GLUCOSE; Start 12/12/18 at 21:00 Glucose (Glutose) 22.5 gm Q15M PRN PO DECREASED GLUCOSE; Start 12/12/18 at 21:00 Dextrose (D50w Syringe) 25 ml Q15M PRN IV DECREASED GLUCOSE; Start 12/12/18 at 21:00 Dextrose (D50w Syringe) 50 ml Q15M PRN IV DECREASED GLUCOSE; Start 12/12/18 at 21:00 Glucagon (Glucagen) 1 mg Q15M PRN IM DECREASED GLUCOSE; Start 12/12/18 at 21:00 Glucose (Glutose) 15 gm Q15M PRN BUCCAL DECREASED GLUCOSE; Start 12/12/18 at 21:00 Hydralazine HCl (Apresoline) 10 mg TID PO Last administered on 12/13/18at 13:34; Admin Dose 10 MG; Start 12/13/18 at 00:00 Influenza Virus Vaccine Quadrival (Fluzone) 0.5 ml ONCE ONCE IM* ; Start 12/14/18 at 10:00; Stop 12/14/18 at 10:01 Sodium Hypochlorite (Dakin'S (Dilute )) 1 applic DAILY IRR ; Start 12/14/18 at 09:00 LUZMA LOCO NP Dec 13, 2018 16:16
[2018-12-13] MEDS ORDERED: VANCOMYCIN IV PER PHARMACY XX SCH (16:30)
--- NOTE | 2018-12-13 17:29 | CONS ---
DATE OF ADMISSION: 12/12/2018 DATE OF CONSULTATION: 12/12/2018 TYPE OF CONSULTATION: Infectious disease. REQUESTING PHYSICIAN: Christen Hutton MD Thank you, Dr. Hutton, for this consultation. HISTORY OF PRESENT ILLNESS: This is a well-developed, well-nourished middle-aged man, well known to our service from previous admission back in 07/2018. The patient is with a history of tobacco use, a mphetamine use, diabetes with diabetic neuropathy, noncompliance, right foot osteomyelitis with a his tory of left 5th digit amputation. The patient was discharged at that time with a PICC line and anti biotics for 6 weeks. He came for abnormal MRI of the foot that showed osteomyelitis of the 3rd and 4 th digits. He received Rocephin and vancomycin in the emergency department. LABORATORY DATA: WBC on admission 8.6 without shift to the left. Normal electrolytes. BUN 15, crea tinine 1.50. SOCIAL HISTORY: As per history of present illness. PHYSICAL EXAMINATION: VITAL SIGNS: Temperature 97.4, pulse 111, respirations 20, blood pressure 125/74, saturation 96% on room air. GENERAL: This is a well-nourished, well-developed, middle-aged man who is alert, in no distress. HEENT: Head is atraumatic, normocephalic. Sclerae are anicteric. Buccal mucosa is pink. NECK: Supple. CHEST: Rise symmetrical. Breath sounds are diminished to bases. HEART: S1, S2. ABDOMEN: Soft. Bowel tones are present. EXTREMITIES: With left lower extremity dressing with some drainage present. DIAGNOSTIC IMPRESSION: This is a 48-year-old man with a history of polysubstance abuse, still with h eavy tobacco use, admitted with recurrent left foot osteomyelitis. The patient is on broad spectrum antibiotics with vancomycin, Rocephin. Cultures are going to be repeated. We are going to order an arterial study and await for podiatry recommendations. I discussed with Dr. Barahona who is covering for Dr. Enriquez. Dictated By: LUZMA LOCO FRONT END DRIVER for LETTY ENRIQUEZ MD NI/NTS Conf#: [id number] DID#: [id number] CC: CHRISTEN HUTTON MD;*EndCC*
[2018-12-13] MEDS: VANCOMYCIN HCL 1.5 GM in SOD CHLORIDE 0.9% 250 ML IVPB SCH (17:40)
[2018-12-13 19:54] VITALS: BP 114/70; PULSE 95; RESP 18
[2018-12-13] MEDS: CEFTRIAXONE 1 GM/50 ML (PMX) 50 ML IVPB SCH (21:10)
[2018-12-13] MEDS: INSULIN GLARGINE [LANTus] (100 UNITS/ML) SYG SC SCH (21:20)
[2018-12-14] MEDS: ACCU-CHEK XX SCH (02:00)
[2018-12-14 02:30] VITALS: BP 122/65; PULSE 79; RESP 18
[2018-12-14] MEDS: VANCOMYCIN HCL 1.5 GM in SOD CHLORIDE 0.9% 250 ML IVPB SCH (06:16)
[2018-12-14 07:17] VITALS: BP 121/73; PULSE 91; RESP 18
[2018-12-14] MEDS ORDERED: SODIUM HYPOCHLORITE (1/40) 1 APPLIC BTL IRR SCH (09:00)
[2018-12-14] MEDS: INSULIN ASPART [NOVOLOG] 3 ML PEN SC SCH ×4 (09:14→13:06)
[2018-12-14] MEDS: CHOLECALCIFEROL 1,000 UNIT TAB PO SCH (09:45)
[2018-12-14] MEDS: LISINOPRIL 20 MG TAB PO SCH (09:46)
--- NOTE | 2018-12-14 12:22 | PN ---
Date/Time of Note Date/Time of Note DATE: 12/14/18 TIME: 12:19 Assessment/Plan VTE Prophylaxis Risk score (from Nsg)>0 risk: 2 SCD applied (from Nsg): Yes Pharmacological prophylaxis: heparin Lines/Catheters IV Catheter Type (from Nrsg): Saline Lock Assessment/Plan Hospital Course 48 yo male with DMII, PAD, diabetic foot wound with osteomyelitis - continue abx per Dr Larsno - MEHREEN shows PAD, aspirin statin indicated. Revascularization per surgery - DMII controlled with basal/bolus insulin Result Diagram: 12/13/18 0500 12/14/18 0522 Results 24hrs Laboratory Tests Test 12/13/18 13:02 12/13/18 15:00 12/13/18 17:38 12/13/18 21:17 Bedside Glucose 88 99 133 Erythrocyte 8 Sedimentation Rate C-Reactive Protein < 0.5 Test 12/14/18 05:22 12/14/18 09:01 Blood Urea Nitrogen 14 Creatinine 1.35 H Bedside Glucose 112 Subjective 24 Hr Interval Summary Free Text/Dictation PICC placed US reveals significant PAD Exam/Review of Systems Exam Vitals Vital Signs Date Temp Pulse Resp B/P (MAP) Pulse Ox O2 O2 Flow FiO2 Time Delivery Rate 12/14/18 98.2 91 18 121/73 97 07:17 (89) 12/13/18 Room Air 13:34 Intake and Output 12/13/18 12/13/18 12/14/18 1515:00 23:00 07:00 IntakeIntake Total 930 ml 730 ml 100 ml OutputOutput Total 200 ml 200 ml BalanceBalance 730 ml 530 ml 100 ml Constitutional: alert, oriented, well developed Psych: no complaints, nl mood/affect Head: normocephalic, atraumatic Eyes: nl conjunctiva, EOMI, nl lids, nl sclera, PERRL ENMT: nl external ears & nose, nl lips & teeth, nl nasal mucosa & septum Neck: supple, non-tender Respiratory: clear to auscultation, normal air movement Cardiovascular: regular rate and rhythm, nl pulses Gastrointestinal: soft, nl liver, spleen, non-tender Musculoskeletal: nl extremities to inspection, nl gait and stance Extremities: normal pulses Neurological: STEEL WELDER II-XII intact, nl mental status, nl speech, nl strength Skin: nl turgor; No rash or lesions Lymph: nl lymph nodes Results Results 24hrs Laboratory Tests Test 12/13/18 13:02 12/13/18 15:00 12/13/18 17:38 12/13/18 21:17 Bedside Glucose 88 99 133 Erythrocyte 8 Sedimentation Rate C-Reactive Protein < 0.5 Test 12/14/18 05:22 12/14/18 09:01 Blood Urea Nitrogen 14 Creatinine 1.35 H Bedside Glucose 112 Medications Medication Current Medications IV Flush (NS 3 ml) 3 ml PER PROTOCOL IV ; Start 12/12/18 at 19:30 Ondansetron HCl (Zofran Inj) 4 mg Q6H PRN IV NAUSEA/VOMITING; Start 12/12/18 at 19:30 Acetaminophen (Tylenol Tab) 650 mg Q6H PRN PO .PAIN 1-3 OR TEMP Last administered on 12/12/18at 23:15; Admin Dose 650 MG; Start 12/12/18 at 19:30 Acetaminophen/ Hydrocodone Bitart ([place] (5/325)) 1 tab Q6H PRN PO .MOD PAIN 4- 6; Start 12/12/18 at 19:30 Morphine Sulfate (morphine) 2 mg Q4H PRN IV .SEVERE PAIN 7-10 Last administered on 12/13/18at 13:26; Admin Dose 2 MG; Start 12/12/18 at 19:30 Docusate Sodium (Colace) 100 mg Q12H PRN PO .CONSTIPATION; Start 12/12/18 at 19:30 Zolpidem Tartrate (Ambien) 5 mg QHS PRN PO .INSOMNIA; Start 12/12/18 at 19:30 Ceftriaxone Sodium 50 ml @ 100 mls/hr Q24H IVPB Last administered on 12/13/18at 21:10; Admin Dose 100 MLS/HR; Start 12/12/18 at 19:30 Cholecalciferol (Vitamin D) 5,000 unit DAILY PO Last administered on 12/14/18at 09:45; Admin Dose 5,000 UNIT; Start 12/13/18 at 09:00 Lisinopril (Zestril) 20 mg DAILY PO Last administered on 12/14/18at 09:46; Admin Dose 20 MG; Start 12/13/18 at 09:00 Diagnostic Test (Pha) (Accu-Chek) 1 ea 02 XX ; Start 12/13/18 at 02:00 Insulin Glargine (Lantus) 17 units DAILY@1999 SC Last administered on 12/13/18at 21:20; Admin Dose 17 UNITS; Start 12/12/18 at 20:00 Insulin Aspart (Novolog Insulin Pen) 6 unit WITH MEALS SC Last administered on 12/14/18at 09:50; Admin Dose 6 UNIT; Start 12/13/18 at 08:00 Insulin Aspart (Novolog Insulin Pen) NOVOLOG *MILD* ALGORITHM WITH MEALS BEDTIME SC ; Start 12/12/18 at 21:00 Miscellaneous Information 1 ea NOTE XX ; Start 12/12/18 at 21:00 Glucose (Glutose) 15 gm Q15M PRN PO DECREASED GLUCOSE; Start 12/12/18 at 21:00 Glucose (Glutose) 22.5 gm Q15M PRN PO DECREASED GLUCOSE; Start 12/12/18 at 21:00 Dextrose (D50w Syringe) 25 ml Q15M PRN IV DECREASED GLUCOSE; Start 12/12/18 at 21:00 Dextrose (D50w Syringe) 50 ml Q15M PRN IV DECREASED GLUCOSE; Start 12/12/18 at 21:00 Glucagon (Glucagen) 1 mg Q15M PRN IM DECREASED GLUCOSE; Start 12/12/18 at 21:00 Glucose (Glutose) 15 gm Q15M PRN BUCCAL DECREASED GLUCOSE; Start 12/12/18 at 21:00 Hydralazine HCl (Apresoline) 10 mg TID PO Last administered on 12/14/18at 09:46; Admin Dose 10 MG; Start 12/13/18 at 00:00 Sodium Hypochlorite (Dakin'S (Dilute )) 1 applic DAILY IRR ; Start 12/14/18 at 09:00 Vancomycin HCl (Vanco Iv Per Pharmacy) VANCOMYCIN PER PHARMACY PER PROTOCOL XX ; Start 12/13/18 at 16:30 Miscellaneous Information (*Rx Drug Level Order Reminder*) VANCO TR AT 1999 ONCE ONCE XX ; Start 12/14/18 at 20:00; Stop 12/14/18 at 20:01 Vancomycin HCl 1.5 gm/Sodium Chloride 250 ml @ 83.333 mls/ hr Q12H IVPB ; Start 12/14/18 at 21:00 REYNOLD VERONICA MD Dec 14, 2018 12:22
[2018-12-14] MEDS ORDERED: LIDOCAINE 1% (MPF) 5 ML VIAL SC ONE (12:30)
--- NOTE | 2018-12-14 12:55 | CONS ---
Assessment/Plan Assessment/Plan Hospital Course (Demo Recall) Patient is alert looks comfortable, asking for PICC and wants to leave. He admits to using Amphetamines on/off Physical examination well-developed well-nourished middle-aged man who is alert in no distress. Head atraumatic normocephalic. Neck is supple chest rise symmetrical. Breath sounds clear. Heart: S1-S2. Abdomen soft bowel sounds present. Extremities: Left lower extremity Juno wrapped Assessment: 1. Left diabetic foot ulceration with ongoing osteomyelitis 2. Diabetes with diabetic neuropathy 3. Peripheral arterial disease 4. Chronic tobacco use 5. Amphetamine use Plan: Remains stable, wound cx pending, per discussion with podiatry the wound looks clean, patient has no leukocytosis and may not have active osteomyelitis. Don't think patients is a candidate for outpatient PICC given ongoing drug use, will try to arrange po abx ==> most likely Zyvox and Cipro Discussed with Dr. Wolfe Consultation Date/Type/Reason Admit Date/Time Dec 13, 2018 at 11:13 Initial Consult Date Type of Consult id Date/Time of Note DATE: 12/14/18 TIME: 12:51 Exam/Review of Systems Exam Vitals Vital Signs Date Temp Pulse Resp B/P (MAP) Pulse Ox O2 O2 Flow FiO2 Time Delivery Rate 12/14/18 98.2 91 18 121/73 97 07:17 (89) 12/13/18 Room Air 13:34 Intake and Output 12/13/18 12/13/18 12/14/18 1414:59 22:59 06:59 IntakeIntake Total 930 ml 730 ml 100 ml OutputOutput Total 200 ml 200 ml BalanceBalance 730 ml 530 ml 100 ml Results Result Diagram: 12/13/18 0500 12/14/18 0522 Results 24hrs Laboratory Tests Test 12/13/18 13:02 12/13/18 15:00 12/13/18 17:38 12/13/18 21:17 Bedside Glucose 88 99 133 Erythrocyte 8 Sedimentation Rate C-Reactive Protein < 0.5 Test 12/14/18 05:22 12/14/18 09:01 Blood Urea Nitrogen 14 Creatinine 1.35 H Bedside Glucose 112 Medications Medication Current Medications IV Flush (NS 3 ml) 3 ml PER PROTOCOL IV ; Start 12/12/18 at 19:30 Ondansetron HCl (Zofran Inj) 4 mg Q6H PRN IV NAUSEA/VOMITING; Start 12/12/18 at 19:30 Acetaminophen (Tylenol Tab) 650 mg Q6H PRN PO .PAIN 1-3 OR TEMP Last a dministered on 12/12/18at 23:15; Admin Dose 650 MG; Start 12/12/18 at 19:30 Acetaminophen/ Hydrocodone Bitart ([place] (5/325)) 1 tab Q6H PRN PO .MOD PAIN 4- 6; Start 12/12/18 at 19:30 Morphine Sulfate (morphine) 2 mg Q4H PRN IV .SEVERE PAIN 7-10 Last administered on 12/13/18at 13:26; Admin Dose 2 MG; Start 12/12/18 at 19:30 Docusate Sodium (Colace) 100 mg Q12H PRN PO .CONSTIPATION; Start 12/12/18 at 19:30 Zolpidem Tartrate (Ambien) 5 mg QHS PRN PO .INSOMNIA; Start 12/12/18 at 19:30 Ceftriaxone Sodium 50 ml @ 100 mls/hr Q24H IVPB Last administered on 12/13/18at 21:10; Admin Dose 100 MLS/HR; Start 12/12/18 at 19:30 Cholecalciferol (Vitamin D) 5,000 unit DAILY PO Last administered on 12/14/18at 09:45; Admin Dose 5,000 UNIT; Start 12/13/18 at 09:00 Lisinopril (Zestril) 20 mg DAILY PO Last administered on 12/14/18 09:46; Admin Dose 20 MG; Start 12/13/18 at 09:00 Diagnostic Test (Pha) (Accu-Chek) 1 ea 02 XX ; Start 12/13/18 at 02:00 Insulin Glargine (Lantus) 17 units DAILY@2000 SC Last administered on 12/13/18at 21:20; Admin Dose 17 UNITS; Start 12/12/18 at 20:00 Insulin Aspart (Novolog Insulin Pen) 6 unit WITH MEALS SC Last administered on 12/14/18at 09:50; Admin Dose 6 UNIT; Start 12/13/18 at 08:00 Insulin Aspart (Novolog Insulin Pen) NOVOLOG *MILD* ALGORITHM WITH MEALS BEDTIME SC ; Start 12/12/18 at 21:00 Miscellaneous Information 1 ea NOTE XX ; Start 12/12/18 at 21:00 Glucose (Glutose) 15 gm Q15M PRN PO DECREASED GLUCOSE; Start 12/12/18 at 21:00 Glucose (Glutose) 22.5 gm Q15M PRN PO DECREASED GLUCOSE; Start 12/12/18 at 21:00 Dextrose (D50w Syringe) 25 ml Q15M PRN IV DECREASED GLUCOSE; Start 12/12/18 at 21:00 Dextrose (D50w Syringe) 50 ml Q15M PRN IV DECREASED GLUCOSE; Start 12/12/18 at 21:00 Glucagon (Glucagen) 1 mg Q15M PRN IM DECREASED GLUCOSE; Start 12/12/18 at 21:00 Glucose (Glutose) 15 gm Q15M PRN BUCCAL DECREASED GLUCOSE; Start 12/12/18 at 21:00 Hydralazine HCl (Apresoline) 10 mg TID PO Last administered on 12/14/18at 09:46; Admin Dose 10 MG; Start 12/13/18 at 00:00 Sodium Hypochlorite (Dakin'S (Dilute )) 1 applic DAILY IRR ; Start 12/14/18 at 09:00 Vancomycin HCl (Vanco Iv Per Pharmacy) VANCOMYCIN PER PHARMACY PER PROTOCOL XX ; Start 12/13/18 at 16:30 Miscellaneous Information (*Rx Drug Level Order Reminder*) VANCO TR AT 2000 ONCE ONCE XX ; Start 12/14/18 at 20:00; Stop 12/14/18 at 20:01 Vancomycin HCl 1.5 gm/Sodium Chloride 250 ml @ 83.333 mls/ hr Q12H IVPB ; Start 12/14/18 at 21:00 LUZMA LOCO NP Dec 14, 2018 12:55
--- NOTE | 2018-12-14 14:02 | CONS ---
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 Otherwise normal bilateral lower extremity arterial ultrasound. Patient brought MRI results on a CD from outside facility and reviewed imaging. There are areas where signs of osteomyelitis can be appreciated, however there are no open wounds correlating to the 3rd and 4th digit sites. Wound cultures pending, patient would benefit from PO oral abx. Questionable drug use hx and unsuccessful use of PICC line in the past makes him not a likely candidate for PICC line therapy. Patient amenable to oral antibiotic therapy and appreciate ID recommendations. Patient refusing OR procedures. Amenable to bedside debridements and antibiotic therapy. Recommend social studies department chair/case management to verify insurance can cover visits for the [facility]. Daily dressing changes and orders placed. Patient would benefit from home health care. Consultation Date/Type/Reason Admit Date/Time Dec 13, 2018 at 11:13 Initial Consult Date Date/Time of Note DATE: 12/14/18 TIME: 14:01 24 HR Interval Summary Free Text/Dictation No acute events overnight. Exam/Review of Systems Exam Vitals Vital Signs Date Temp Pulse Resp B/P (MAP) Pulse Ox O2 O2 Flow FiO2 Time Delivery Rate 12/14/18 98.2 91 18 121/73 97 07:17 (89) 12/13/18 Room Air 13:34 Intake and Output 12/13/18 12/13/18 12/14/18 1515:00 23:00 07:00 IntakeIntake Total 930 ml 730 ml 100 ml OutputOutput Total 200 ml 200 ml BalanceBalance 730 ml 530 ml 100 ml Exam DP/PT pulses palpable pedal hairs present CFT less than 3 seconds to the digits Left 5th digit ulceration site 4 x 0.8 x 0.8cm granular ulcer with hyperkeratotic border. The wound probes to bone and no purulence is expressed, no proximal streaking, no surrounding erythema Left plantar foot ulcer 0.2 x 0.2 x 0.1cm granular ulcer with hyperkeratotic border. Does not probe to bone, no purulence is expressed, no proximal str eaking, no surrounding erythema Dystrophic mycotic nails Absent protective sensations Muscle strength 5/5 in all compartments of the foot. Results Result Diagram: 12/13/18 0500 12/14/18 0522 Results 24hrs Laboratory Tests Test 12/13/18 15:00 12/13/18 17:38 12/13/18 21:17 12/14/18 05:22 Erythrocyte 8 Sedimentation Rate C-Reactive Protein < 0.5 Bedside Glucose 99 133 Blood Urea Nitrogen 14 Creatinine 1.35 H Test 12/14/18 09:01 12/14/18 12:54 Bedside Glucose 112 165 Medications Medication Current Medications IV Flush (NS 3 ml) 3 ml PER PROTOCOL IV ; Start 12/12/18 at 19:30 Ondansetron HCl (Zofran Inj) 4 mg Q6H PRN IV NAUSEA/VOMITING; Start 12/12/18 at 19:30 Acetaminophen (Tylenol Tab) 650 mg Q6H PRN PO .PAIN 1-3 OR TEMP Last admini stered on 12/12/18at 23:15; Admin Dose 650 MG; Start 12/12/18 at 19:30 Acetaminophen/ Hydrocodone Bitart ([place] (5/325)) 1 tab Q6H PRN PO .MOD PAIN 4- 6; Start 12/12/18 at 19:30 Morphine Sulfate (morphine) 2 mg Q4H PRN IV .SEVERE PAIN 7-10 Last administered on 12/13/18at 13:26; Admin Dose 2 MG; Start 12/12/18 at 19:30 Docusate Sodium (Colace) 100 mg Q12H PRN PO .CONSTIPATION; Start 12/12/18 at 19:30 Zolpidem Tartrate (Ambien) 5 mg QHS PRN PO .INSOMNIA; Start 12/12/18 at 19:30 Ceftriaxone Sodium 50 ml @ 100 mls/hr Q24H IVPB Last administered on 12/13/18at 21:10; Admin Dose 100 MLS/HR; Start 12/12/18 at 19:30 Cholecalciferol (Vitamin D) 5,000 unit DAILY PO Last administered on 12/14/18at 09:45; Admin Dose 5,000 UNIT; Start 12/13/18 at 09:00 Lisinopril (Zestril) 20 mg DAILY PO Last administered on 12/14/18at 09:46; Admin Dose 20 MG; Start 12/13/18 at 09:00 Diagnostic Test (Pha) (Accu-Chek) 1 ea 02 XX ; Start 12/13/18 at 02:00 Insulin Glargine (Lantus) 17 units DAILY@1999 SC Last administered on 12/13/18at 21:20; Admin Dose 17 UNITS; Start 12/12/18 at 20:00 Insulin Aspart (Novolog Insulin Pen) 6 unit WITH MEALS SC Last administered on 12/14/18at 13:05; Admin Dose 6 UNIT; Start 12/13/18 at 08:00 Insulin Aspart (Novolog Insulin Pen) NOVOLOG *MILD* ALGORITHM WITH MEALS BEDTIME SC Last administered on 12/14/18at 13:06; Admin Dose 1 UNIT; Start 12/12/18 at 21:00 Miscellaneous Information 1 ea NOTE XX ; Start 12/12/18 at 21:00 Glucose (Glutose) 15 gm Q15M PRN PO DECREASED GLUCOSE; Start 12/12/18 at 21:00 Glucose (Glutose) 22.5 gm Q15M PRN PO DECREASED GLUCOSE; Start 12/12/18 at 21:00 Dextrose (D50w Syringe) 25 ml Q15M PRN IV DECREASED GLUCOSE; Start 12/12/18 at 21:00 Dextrose (D50w Syringe) 50 ml Q15M PRN IV DECREASED GLUCOSE; Start 12/12/18 at 21:00 Glucagon (Glucagen) 1 mg Q15M PRN IM DECREASED GLUCOSE; Start 12/12/18 at 21:00 Glucose (Glutose) 15 gm Q15M PRN BUCCAL DECREASED GLUCOSE; Start 12/12/18 at 21:00 Hydralazine HCl (Apresoline) 10 mg TID PO Last administered on 12/14/18at 12:59; Admin Dose 10 MG; Start 12/13/18 at 00:00 Sodium Hypochlorite (Dakin'S (Dilute )) 1 applic DAILY IRR ; Start 12/14/18 at 09:00 Vancomycin HCl (Vanco Iv Per Pharmacy) VANCOMYCIN PER PHARMACY PER PROTOCOL XX ; Start 12/13/18 at 16:30 Miscellaneous Information (*Rx Drug Level Order Reminder*) VANCO TR AT 1999 ONCE ONCE XX ; Start 12/14/18 at 20:00; Stop 12/14/18 at 20:01 Vancomycin HCl 1.5 gm/Sodium Chloride 250 ml @ 83.333 mls/ hr Q12H IVPB ; Start 12/14/18 at 21:00 EMILIE DING DPM Dec 14, 2018 14:02
[2018-12-14 14:26] VITALS: BP 140/88; PULSE 91; RESP 18
[2018-12-14] MEDS ORDERED: SULF1TAB31 PO (14:58)
--- NOTE | 2018-12-14 14:59 | PDOCDIS ---
Discharge Instructions DIAGNOSIS Discharge Diagnosis Osteomyelitis CONDITION [id number] Patient Condition: [id number] Stable FOLLOW UP/APPOINTMENTS Follow-up Plan See your molder apprentice as soon as possible Take your antibiotics as prescribed, available at REYNOLD Cadet MD Dec 14, 2018 14:59
--- NOTE | 2018-12-14 15:01 | DS ---
Date/Time of Note Date/Time of Note DATE: 12/14/18 TIME: 14:59 Discharge Summary Admission/Discharge Info Admit Date/Time Dec 13, 2018 at 11:13 Discharge Date/Time Discharge Diagnosis Osteomyelitis Patient Condition: Stable Hospital Course 48 yo male with DMII, PAD, diabetic foot wound referred for admission for management of osteomyelitis Patient declined to have his foot debrided by podiatry He also declined IV PICC abx Thus, PO bactrim was prescribed and the patient was encouraged to follow up with his machine slat basket maker as an outpatient He had no signs of sepsis, inflammatory markers were not elevated Arterial ultrasound showed signs of vascluar insufficiency, he was encouraged to follow up with his doctor for management of this Home Meds Reported Medications Liraglutide (Victoza 2-Jose) 0.6 Mg/0.1 Ml Pen.injctr, 0.6 MG SQ DAILY, SYR 12/12/18 Cholecalciferol (Vitamin D3) 5,000 Unit Tablet, 5000 UNIT PO DAILY, TAB 12/12/18 Lisinopril* (Lisinopril*) 20 Mg Tablet, 20 MG PO DAILY, #30 TAB 12/12/18 Hydralazine Hcl* (Hydralazine Hcl*) 10 Mg Tablet, 10 MG PO TID PRN for NEEDED, #60 TAB 12/12/18 Insulin Glargine,Hum.rec.anlog (Basaglar Kwikpen U-100) 100 Unit/1 Ml Insuln.pen, 16 UNIT SC DAILY, EA 12/12/18 Insulin Lispro (Humalog) 100 Unit/1 Ml Cartridge, 0 SQ SLIDING SCALE, EA INJECT NEEDED (AVERAGE BTWN 3-5 UNIUTS) 12/12/18 Discontinued Scripts [Insulin Glargine] 100 UNITS/ML SOLN No Conflict Check, 16 UNITS SC DAILY@1999, #30 ML Prov:ELPIDIO FISCHER MD 08/28/18 Insulin Aspart* (Novolog Insulin Pen*) 100 Unit/Ml Soln, 2 UNIT SC WITH MEALS BEDTIME, #30 ML Prov:ELPIDIO FISCHER MD 08/28/18 Levofloxacin* (Levaquin*) 500 Mg Tablet, 500 MG PO DAILY@06, #42 TAB Prov:ELPIDIO FISCHER MD 08/28/18 Follow-up Plan See your machine slat basket maker as soon as possible Take your antibiotics as prescribed, available at [facility] [employer] Primary Care Provider Not On Staff Doctor Pending Labs Laboratory Tests Test 12/13/18 15:00 12/13/18 17:38 12/13/18 21:17 12/14/18 05:22 Erythrocyte 8 mm/Hr (0-20) Sedimentation Rate C-Reactive < 0.5 Protein mg/dl (0.0-0.9) Bedside 99 133 Glucose mg/dL (70-220) mg/dL (70-220) Blood Urea 14 Nitrogen mg/dl (7-20) Creatinine 1.35 mg/dl (0.61-1. 24) Test 12/14/18 09:01 12/14/18 12:54 Bedside 112 165 Glucose mg/dL (70-220) mg/dL (70-220) REYNOLD VERONICA MD Dec 14, 2018 15:01
[2018-12-14] MEDS ORDERED: VANCOMYCIN HCL 1.5 GM in SOD CHLORIDE 0.9% 250 ML IVPB SCH (21:00)
== END 2018-12-14 15:25 | disposition home or self-care (01) | DRG 623 ==
LOC: E/R 14:10 → 2NE 17:52 → OBSVTOIN 12-13 11:13
PROVIDERS: ADMIT Internal Medicine; ATTEND Internal Medicine
PROC: 0JBR0ZZ Excision of Left Foot Subcutaneous Tissue and Fascia, Open Approach (ICD-10-PCS; principal; 2018-12-13)
DX: E10.621 Type 1 diabetes mellitus with foot ulcer (principal); M86.172 Other acute osteomyelitis, left ankle and foot; E10.42 Type 1 diabetes mellitus with diabetic polyneuropathy; E10.51 Type 1 diabetes mellitus with diabetic peripheral angiopathy without gangrene; F15.90 Other stimulant use, unspecified, uncomplicated; B35.1 Tinea unguium; E10.69 Type 1 diabetes mellitus with other specified complication; B95.8 Unspecified staphylococcus as the cause of diseases classified elsewhere; F17.200 Nicotine dependence, unspecified, uncomplicated; L97.529 Non-pressure chronic ulcer of other part of left foot with unspecified severity; Z79.4 Long term (current) use of insulin; Z89.422 Acquired absence of other left toe(s); Z91.19 Patient's noncompliance with other medical treatment and regimen
CPT/HCPCS: 36415; 80048; 80053; 82565; 82962; 83036; 83605; 83735; 84100; 84520; 85025; 85610; 85651; 85730; 86140; 87040; 87070; 90686; 93005; 93922; 96374; G0378; J0696; J1815; J2270; J3370; J7030; J7050